=== PATIENT | male | born 1955 | race Hispanic/Latino ===

== ENCOUNTER → 2020-11-18 | Outpatient (CLI) | payer BC | END | disposition home or self-care (01) | LOC: WHH 08:58 | PROVIDERS: ATTEND Family Medicine | DX: I89.0 Lymphedema, not elsewhere classified (principal); I87.2 Venous insufficiency (chronic) (peripheral); I10 Essential (primary) hypertension; E78.5 Hyperlipidemia, unspecified; E66.9 Obesity, unspecified; Z68.39 Body mass index [BMI] 39.0-39.9, adult; Z90.49 Acquired absence of other specified parts of digestive tract; Z98.890 Other specified postprocedural states; Z79.899 Other long term (current) drug therapy | CPT/HCPCS: 99214 ==

== ENCOUNTER → 2020-11-25 | Outpatient (CLI) | payer BC | END | disposition home or self-care (01) | LOC: WHH 09:00 | PROVIDERS: ATTEND Family Medicine | DX: I87.2 Venous insufficiency (chronic) (peripheral) (principal); I89.0 Lymphedema, not elsewhere classified; I10 Essential (primary) hypertension; E66.9 Obesity, unspecified; E78.5 Hyperlipidemia, unspecified; Z79.899 Other long term (current) drug therapy | CPT/HCPCS: 99214 ==